=== PATIENT | female | born 1985 | race Two or more races ===

== ENCOUNTER 2024-12-09 08:45 | Emergency (ER) | payer MEDICAID, SELFPAY ==
[2024-12-09 08:59] VITALS: BP 176/115; BP 187/113; PULSE 88; RESP 19; O2SAT 96; BMI 40.6
--- NOTE | 2024-12-09 09:05 | XR_ITS ---
Examination: Wrist, right 3 views Technique: Wrist AP, oblique, lateral 3 views Date and time of exam: December 09, 2024 0916 hours INDICATIONS: Severe wrist pain today FINDINGS: No fracture or dislocation No foreign body No cortical bone destruction IMPRESSION: No fracture or dislocation
--- NOTE | 2024-12-09 09:06 | PD.EDHAND ---
Upper Extremity Injury RME/HPI General Chief Complaint: Hand/Wrist Problems Stated Complaint: SHARP RIGHT HAND PAIN X 2 DAYS Time Seen by Provider: 12/09/24 09:05 Source: patient Arrival date/time: 12/09/24 08:45 39-year-old female with no known medical history presents to the emergency room with a chief complaint of tenderness and pain to the right wrist x 2 days Mode of arrival: ambulatory Limitations: no limitations Related Data Previous Rx's ?Medication ?Instructions ?Recorded benzonatate 100 mg capsule 100 mg PO TID PRN cough #30 caps 07/26/18 (Tessalon Perles) codeine 10 mg-guaifenesin 100 mg/5 5 ml PO QHSPRN PRN cough #118 mL 07/26/18 mL oral liquid (Guaifenesin AC) ibuprofen 800 mg tablet 800 mg PO TID PRN pain #30 tabs 07/26/18 ciprofloxacin HCl 500 mg tablet 500 mg PO BID #14 tabs 04/13/20 lisinopril 5 mg tablet 5 mg PO QDAY #30 tabs 05/02/23 dextromethorphan-guaifenesin 10 10 ml PO Q8H PRN cough #500 mL 07/07/23 mg-100 mg/5 mL oral liquid ibuprofen 600 mg tablet 600 mg PO TID PRN pain #30 tabs 07/07/23 promethazine-DM 6.25 mg-15 mg/5 mL 5 ml PO Q6H #118 mL 10/31/23 oral syrup acetaminophen 500 mg capsule 1,000 mg (2 x 500 mg) PO Q6H PRN 02/18/24 fever or pain #60 caps amlodipine 5 mg tablet 5 mg PO QDAY #30 tabs 02/18/24 ibuprofen 800 mg tablet 800 mg PO TID PRN pain #60 tabs 02/18/24 ibuprofen 800 mg tablet 800 mg PO Q6H PRN pain #10 tabs 03/30/24 promethazine-DM 6.25 mg-15 mg/5 mL 5 ml PO Q6H PRN cough #118 mL 03/30/24 oral syrup Allergies Allergy/AdvReac Type Severity Reaction Status Date / Time No Known Allergies Allergy Verified 12/09/24 08:49 Review of Systems Review of Systems Systems Reviewed: All systems reviewed, normal except as documented Constitutional Constitutional: Reports system reviewed and no additional complaints, except as documented, Denies fatigue, Denies fever(s), Denies headache(s) and Denies weakness Eyes Eyes: Reports system reviewed and no additional complaints, except as documented, Denies blurry vision and Denies change in vision ENT Ears, Nose, Mouth, and Throat: Reports system reviewed and no additional complaints, except as documented, Denies otalgia, Denies headache(s), Denies nasal congestion, Denies throat swelling and Denies vertigo Cardiovascular Cardiovascular: Reports system reviewed and no additional complaints, except as documented, Denies chest pain, Denies dyspnea and Denies dyspnea on exertion Respiratory Respiratory: Reports system reviewed and no additional complaints, except as documented, Denies chest congestion, Denies cough, Denies dyspnea, Denies dyspnea on exertion and Denies wheezing Gastrointestinal Gastrointestinal: Reports system reviewed and no additional complaints, except as documented, Denies abdominal pain, Denies cramping, Denies nausea and Denies vomiting Genitourinary Genitourinary: Reports system reviewed and no additional complaints, except as documented Musculoskeletal Musculoskeletal: Reports system reviewed and no additional complaints, except as documented, Reports arthralgias, Denies back pain, Reports joint swelling, Reports muscle weakness and Denies numbness Integumentary/Breasts Skin/Breast: Reports system reviewed and no additional complaints, except as documented and Denies wounds Neurologic Neurologic: Reports system reviewed and no additional complaints, except as documented, Denies confusion, Denies headache(s), Denies lack of coordination, Denies numbness, Denies vertigo and Denies weakness Psychiatric Psychiatric: Reports system reviewed and no additional complaints, except as documented, Denies anxiety, Denies confusion, Denies depression, Denies paranoia, Denies suicidal ideation and Denies tactile hallucinations Endocrine Endocrine: Reports system reviewed and no additional complaints, except as documented and Denies fatigue Hematologic/Lymphatic Hematologic/Lymphatic: Reports system reviewed and no additional complaints, except as documented and Denies lymphadenopathy Allergic/Immunologic Allergic/Immunologic: Reports system reviewed and no additional complaints, except as documented, Denies throat swelling, Denies urticaria and Denies wheezing Past Medical History Past Medical History CARDIAC: Negative Congestive Heart Failure RESPIRATORY: Negative Chronic Obstructive Pulmonary Disease (COPD) GENITOURINARY: Negative Renal Disease ENDOCRINE: Negative Diabetes Mellitus Type 1 or Diabetes Mellitus Type 2 Social History SMOKING STATUS: Never smoker ED Exam General Limitations: Present no limitations General appearance: Present alert and in no apparent distress Head Head exam: Present atraumatic Eye Eye exam: Present normal appearance, PERRL and EOMI ENT ENT exam: Present normal exam, normal oropharynx and mucous membranes moist Neck Neck exam: Present normal inspection, full ROM and trachea midline Chest Chest inspection: Present normal inspection and symmetric chest wall rise Respiratory Respiratory exam: Present normal lung sounds bilaterally Cardiovascular Cardiovascular exam: Present regular rate, normal rhythm and normal heart sounds Abdominal Exam Abdominal exam: Present soft and normal bowel sounds Extremities Exam Extremities exam: Present normal inspection and full ROM Expanded Upper Extremity Exam Shoulder exam: Present normal inspection Arm exam: Present normal inspection Elbow exam: Present normal inspection Forearm/Wrist exam: Present normal inspection, tenderness and swelling; Absent tenderness over anatomical snuff box Back Exam Back exam: Present normal inspection and full ROM Neurological Exam Neurological exam: Present alert, oriented X3 and CN II-XII intact Psychiatric Psychiatric exam: Present normal affect and normal mood Skin Skin exam: Present warm, dry, intact and normal color Course Quality Measures none Orders Category Date Time Status mia wrap [Splint / Immobilizer] STAT Care 12/09/24 09:06 Active XR wrist comp RT min 3V Stat Exams 12/09/24 09:05 Completed Ketorolac Inj [Toradol Inj] Med 12/09/24 09:06 Discontinued 30 mg IM X1 ONE cloNIDine HCL [Catapres] Med 12/09/24 09:05 Discontinued 0.1 mg PO X1 ONE Vital Signs Vital signs: Vital Signs Pulse Rate 88 12/09/24 08:59 Respiratory Rate 19 12/09/24 08:59 Blood Pressure 176/115 H 12/09/24 08:59 Pulse Oximetry (%) 96 12/09/24 08:59 Oxygen Delivery Method Room Air 12/09/24 08:59 O2 saturation 96% within normal limits Extremity Injury MDM Narrative MDM Narrative:: 39-year-old female with no known medical history presents to the emergency room with a chief complaint of tenderness and pain to the right wrist x 2 days Patient is hemodynamically stable and in no apparent distress. Physical examination shows tenderness and pain to the patient's right wrist. Patient states she works in the [employer] and has a lot of repetitive movement. Patient denies any trauma or injury to the area. An x-ray of the wrist was completed and was negative for any acute fracture. Patient had relief with the Toradol injection Patient was discharged and educated to follow-up with primary care provider in the next 24 to 48 hours and return to the emergency room for any evidence of worsening signs or symptoms Patient data External records reviewed:: [facility] previous records Clinical information provided by:: patient Social determinants that could affect healthcare access:: none Patient has the following chronic illnesses:: Hypertension s How is presenting disease/condition affected by chronic disease/condition?: uneffected by Evaluation data The following diagnostics were reviewed and interpreted by me:: lab results and radiology exam(s) Lab and/or radiology exams considered but not ordered:: Labs and radiology's considered and ordered Interpretation Summary: X-ray wrist-FINDINGS: No fracture or dislocation No foreign body No cortical bone destruction IMPRESSION: No fracture or dislocation Medications / Prescriptions Medications or Prescriptions considered but not ordered:: Medication given Medication administrations:: Medication Administration History Discontinued Medications Clonidine (Clonidine Hcl 0.1 Mg Tablet) 0.1 mg PO X1 ONE Stop: 12/09/24 09:06 Last Admin: 12/09/24 09:27 Dose: 0.1 mg Documented By: SESAR Ketorolac Tromethamine (Ketorolac Inj 60 Mg/2 Ml Vial) 30 mg IM X1 ONE Stop: 12/09/24 09:07 Last Admin: 12/09/24 09:27 Dose: 30 mg Documented By: SESAR Medication given Consultations Consultation(s) initiated? (list below): No Diagnosis Upper Extremity Injury Differential Diagnosis: sprain and strain of wrist, fracture of wrist and other (Tendinitis) Most likely diagnosis given after review of the tests above:: Tendinitis Admission Indicated Admission indicated?: not indicated Admission Request Was there a request for admission?: No Disposition Plan Disposition Plan: Discharge Discharge Attestation Discharge Attestation: The patient and all family members were given an opportunity to ask questions and understood the discharge instructions. Discharge instructions specifically effects, indications for sooner follow up or return to the emergency department, and the expected course of current diagnosis. Patient condition: Stable Discharge Plan Plan Patient Disposition: HOME (Self Care) Discharge Disposition comment: Stable Prescriptions/Referrals Prescriptions/Med Rec: No Action ibuprofen 800 mg tablet 800 mg PO TID PRN (Reason: pain) Qty: 30 0RF benzonatate [Tessalon Perles] 100 mg capsule 100 mg PO TID PRN (Reason: cough) Qty: 30 0RF codeine-guaifenesin [Guaifenesin AC] 10-100 mg/5 mL liquid 5 ml PO QHSPRN PRN (Reason: cough) Qty: 118 0RF Rx Instructions: Do not take at the same time as you take your lorazepam if you are still taking ciprofloxacin HCl 500 mg tablet 500 mg PO BID Qty: 14 0RF lisinopril 5 mg tablet 5 mg PO QDAY Qty: 30 0RF dextromethorphan-guaifenesin 10-100 mg/5 mL liquid 10 ml PO Q8H PRN (Reason: cough) Qty: 500 0RF ibuprofen 600 mg tablet 600 mg PO TID PRN (Reason: pain) Qty: 30 0RF promethazine-DM 6.25-15 mg/5 mL syrup 5 ml PO Q6H Qty: 118 0RF ibuprofen 800 mg tablet 800 mg PO TID PRN (Reason: pain) Qty: 60 0RF acetaminophen 500 mg capsule 1,000 mg PO Q6H PRN (Reason: fever or pain) Qty: 60 0RF amlodipine 5 mg tablet 5 mg PO QDAY Qty: 30 0RF promethazine-DM 6.25-15 mg/5 mL syrup 5 ml PO Q6H PRN (Reason: cough) Qty: 118 0RF ibuprofen 800 mg tablet 800 mg PO Q6H PRN (Reason: pain) Qty: 10 0RF Referrals: No Primary/Family,Physician [Primary Care Provider] - In 1 week Problem List Clinical Impression: Tendinitis Patient/Caregiver Discharge Instructions Additional Instructions: Por favor, consulte con guzman m?dico de cabecera en las pr?ximas 24 a 48 horas. Se realizaron radiograf?as y resultaron negativas para cualquier fractura o luxaci?n aguda. Si observa cualquier signo de empeoramiento de los signos o s?ntomas, acuda a urgencias de inmediato. Print Language: Citizen Of [place] Stand Alone Forms: Cari Award Info., Work/School Release, Patient Portal Info Letter PA/COLLECTOR Supervising Physician PA/COLLECTOR Supervising Physician: Dr. France
[2024-12-09 09:27] VITALS: BP 176/115; PULSE 88
[2024-12-09] MEDS: KETOROLAC INJ 60 MG/2 ML VIAL 30 MG IM (09:27)
[2024-12-09] MEDS: cloNIDine HCL 0.1 MG TABLET PO (09:27)
[2024-12-09 11:05] VITALS: BP 160/80; PULSE 69; RESP 17; TEMP 36.7; O2SAT 99
== END 2024-12-09 11:34 | disposition home or self-care (01) ==
PROVIDERS: Emergency Provider Emergency Medicine
DX: M77.8 Other enthesopathies, not elsewhere classified (principal)
CPT/HCPCS: 73110; 96372; 99283; J1885; A9270

== ENCOUNTER 2025-04-20 10:37 | Emergency (ER) | payer MEDICAID, SELFPAY ==
[2025-04-20 10:38] VITALS: BMI 30.5
[2025-04-20 10:55] VITALS: BP 169/107; PULSE 73; RESP 18; TEMP 37.5; O2SAT 99
--- NOTE | 2025-04-20 10:57 | XR_ITS ---
Examination: PA lateral chest 2 views TECHNIQUE: Upright PA lateral chest 2 views Date and time: April 20, 2025 1117 hours, comparison March 30, 2024 INDICATIONS: Coughing chest pain beginning 2 days ago. FINDINGS: Normal heart size. No interval pneumonia or pulmonary edema. Prominent thoracolumbar levoscoliosis again noted IMPRESSION: No interval pneumonia or pulmonary edema
[2025-04-20] MEDS: DEXAMETHASONE SOD PHOS INJ 10 MG/ML VIAL PO (11:01)
--- NOTE | 2025-04-20 11:03 | PC.NURSE ---
RT CALLED AT THIS TIME AND MADE AWARE PT HAS BREATHING TREATMENT ORDERED BY PROVIDER.
[2025-04-20] MEDS: ALBUTEROL/IPRATROPIUM (Duoneb) RT SOL 3 ML NEBU INH (11:25)
[2025-04-20 11:27] VITALS: PULSE 82; RESP 19; O2SAT 99
[2025-04-20] MEDS: PROMETHAZINE/DM SYRUP 5 ML DOSE PO (11:41)
--- NOTE | 2025-04-20 11:43 | PD.EDURI ---
Upper Respiratory Inf. RME/HPI General Chief Complaint: Flu Like Symptoms Stated Complaint: COUGHX1 WEEK, SOB, CHEST PAIN, & BACK PAIN Time Seen by Provider: 04/20/25 10:41 Arrival date/time: 04/20/25 10:37 39-year-old female with medical history significant for asthma presents with complaints of cough x 1 week patient reports back pain runny nose clinical, congestion, wheezing Limitations: no limitations Related Data Previous Rx's ?Medication ?Instructions ?Recorded benzonatate 100 mg capsule 100 mg PO TID PRN cough #30 caps 07/26/18 (Olivia Gilliam) codeine 10 mg-guaifenesin 100 mg/5 5 ml PO QHSPRN PRN cough #118 mL 07/26/18 mL oral liquid (Guaifenesin AC) ibuprofen 800 mg tablet 800 mg PO TID PRN pain #30 tabs 07/26/18 ciprofloxacin HCl 500 mg tablet 500 mg PO BID #14 tabs 04/13/20 lisinopril 5 mg tablet 5 mg PO QDAY #30 tabs 05/02/23 dextromethorphan-guaifenesin 10 10 ml PO Q8H PRN cough #500 mL 07/07/23 mg-100 mg/5 mL oral liquid ibuprofen 600 mg tablet 600 mg PO TID PRN pain #30 tabs 07/07/23 promethazine-DM 6.25 mg-15 mg/5 mL 5 ml PO Q6H #118 mL 10/31/23 oral syrup acetaminophen 500 mg capsule 1,000 mg (2 x 500 mg) PO Q6H PRN 02/18/24 fever or pain #60 caps amlodipine 5 mg tablet 5 mg PO QDAY #30 tabs 02/18/24 ibuprofen 800 mg tablet 800 mg PO TID PRN pain #60 tabs 02/18/24 ibuprofen 800 mg tablet 800 mg PO Q6H PRN pain #10 tabs 03/30/24 promethazine-DM 6.25 mg-15 mg/5 mL 5 ml PO Q6H PRN cough #118 mL 03/30/24 oral syrup Ventolin HFA 90 mcg/actuation 2 puff inhalation Q6H PRN 04/20/25 aerosol inhaler (albuterol sulfate) shortness of breath or wheezing #18 grams benzonatate 100 mg capsule 100 mg PO TID #14 caps 04/20/25 ibuprofen 600 mg tablet 600 mg PO Q6H #30 tabs 04/20/25 prednisone 10 mg tablet 30 mg (3 x 10 mg) PO BID 3 days 04/20/25 #18 tabs Allergies Allergy/AdvReac Type Severity Reaction Status Date / Time No Known Allergies Allergy Verified 04/20/25 10:44 Review of Systems Review of Systems Systems Reviewed: All systems reviewed, normal except as documented Constitutional Constitutional: Reports system reviewed and no additional complaints, except as documented, Denies fever(s) and Denies headache(s) Eyes Eyes: Reports system reviewed and no additional complaints, except as documented and Denies blurry vision ENT Ears, Nose, Mouth, and Throat: Reports system reviewed and no additional complaints, except as documented, Denies headache(s), Reports nasal congestion and Reports nasal discharge Cardiovascular Cardiovascular: Reports system reviewed and no additional complaints, except as documented, Denies chest pain and Denies dyspnea Respiratory Respiratory: Reports system reviewed and no additional complaints, except as documented, Reports chest congestion, Reports cough and Denies dyspnea Gastrointestinal Gastrointestinal: Reports system reviewed and no additional complaints, except as documented and Denies abdominal pain Integumentary/Breasts Skin/Breast: Reports system reviewed and no additional complaints, except as documented and Denies rash Neurologic Neurologic: Reports system reviewed and no additional complaints, except as documented, Reports as per HPI and Denies headache(s) Past Medical History Past Medical History CARDIAC: Negative Congestive Heart Failure RESPIRATORY: Negative Chronic Obstructive Pulmonary Disease (COPD) GENITOURINARY: Negative Renal Disease ENDOCRINE: Negative Diabetes Mellitus Type 1 or Diabetes Mellitus Type 2 Social History SMOKING STATUS: Never smoker ED Exam General Limitations: Present no limitations General appearance: Present alert and in no apparent distress Head Head exam: Present atraumatic, normocephalic and normal inspection Eye Eye exam: Present normal appearance, PERRL and EOMI; Absent conjunctival injection ENT ENT exam: Present normal exam, normal oropharynx and mucous membranes moist Neck Neck exam: Present normal inspection, full ROM and trachea midline Chest Chest inspection: Present normal inspection and symmetric chest wall rise Respiratory Respiratory exam: Present wheezes (Mild expiratory wheeze); Absent respiratory distress, stridor, accessory muscle use or prolonged expiratory phase Cardiovascular Cardiovascular exam: Present regular rate, normal rhythm and normal heart sounds Abdominal Exam Abdominal exam: Present soft and normal bowel sounds Extremities Exam Extremities exam: Present normal inspection and full ROM Back Exam Back exam: Present normal inspection and full ROM Neurological Exam Neurological exam: Present alert, oriented X3 and CN II-XII intact Psychiatric Psychiatric exam: Present normal affect and normal mood Skin Skin exam: Present warm, dry, intact and normal color Course Quality Measures none Orders Category Date Time Status Bedside COVID-19 Antigen Test NOW Care 04/20/25 10:57 Completed Bedside Influenza A&B Antigen Test NOW Care 04/20/25 10:57 Completed XR chest 2V Stat Exams 04/20/25 10:57 Completed Albuterol/Ipratr Rt Luz [Duoneb Rt Luz] Med 04/20/25 10:58 Discontinued 3 ml INH X1 ONE Dexamethasone Inj [Decadron Inj] Med 04/20/25 10:58 Discontinued 10 mg PO X1 ONE Promethazine/Dextromethorph [Phenergan Dm Syrup] Med 04/20/25 11:30 Discontinued 5 ml PO X1 ONE Vital Signs Vital signs: Vital Signs Temperature 99.5 F 04/20/25 10:55 Pulse Rate 73 04/20/25 10:55 Respiratory Rate 18 04/20/25 10:55 Blood Pressure 169/107 H 04/20/25 10:55 Pulse Oximetry (%) 99 04/20/25 10:55 Oxygen Delivery Method Room Air 04/20/25 10:55 O2 saturation 98% room air within limits Upper Respiratory Infection MDM Narrative MDM Narrative:: 39-year-old female with medical history significant for asthma presents with complaints of cough x 1 week patient reports back pain runny nose clinical, congestion, wheezing On exam patient well-appearing patient does not appear ill or toxic no acute distress Patient checked for flu and COVID both which are negative Chest x-ray obtained no acute pneumonic infiltrates noted Patient does have a cough patient was given a breathing treatment Time reevaluation lungs are clear to auscultation no difficulty breathing no retractions Patient discharged home in no distress to follow-up with primary care doctor in the next 24 to 48 hours and for any worsening symptoms to return to the ER immediately Patient data External records reviewed:: [facility] previous records Clinical information provided by:: patient Social determinants that could affect healthcare access:: none Patient has the following chronic illnesses:: None How is presenting disease/condition affected by chronic disease/condition?: no chronic disease Evaluation data The following diagnostics were reviewed and interpreted by me:: lab results and radiology exam(s) Lab and/or radiology exams considered but not ordered:: Labs radiology obtained Interpretation Summary: Reviewed by me Medications / Prescriptions Medications or Prescriptions considered but not ordered:: Given Medication administrations:: Medication Administration History Discontinued Medications Albuterol/Ipratropium (Albuterol/Ipratropium (Duoneb) Rt Luz 3 Ml Nebu) 3 ml INH X1 ONE Stop: 04/20/25 10:59 Last Admin: 04/20/25 11:25 Dose: 3 ml Documented By: JAMES Dexamethasone Sodium Phosphate (Dexamethasone Sod Phos Inj 10 Mg/Ml Vial) 10 mg PO X1 ONE Stop: 04/20/25 10:59 Last Admin: 04/20/25 11:01 Dose: 10 mg Documented By: Comments: per provider, ok to give PO Promethazine HCl/Dextromethorphan (Promethazine/Dm Syrup 5 Ml Dose) 5 ml PO X1 ONE; Protocol Stop: 04/20/25 11:31 Last Admin: 04/20/25 11:41 Dose: 5 ml Documented By: Given Consultations Consultation(s) initiated? (list below): No Diagnosis Upper Respiratory Differential Diagnosis: upper respiratory infection, viral infection, bronchitis and influenza Most likely diagnosis given after review of the tests above:: URI Admission Indicated Admission indicated?: not indicated Admission Request Was there a request for admission?: No Disposition Plan Disposition Plan: Discharge Discharge Attestation Discharge Attestation: The patient and all family members were given an opportunity to ask questions and understood the discharge instructions. Discharge instructions specifically effects, indications for sooner follow up or return to the emergency department, and the expected course of current diagnosis. Patient condition: Stable Discharge Plan Plan Patient Disposition: HOME (Self Care) Discharge Disposition comment: Stable Prescriptions/Referrals Prescriptions/Med Rec: New prednisone 10 mg tablet 30 mg PO BID 3 Days Qty: 18 0RF benzonatate 100 mg capsule 100 mg PO TID Qty: 14 0RF ibuprofen 600 mg tablet 600 mg PO Q6H Qty: 30 0RF albuterol sulfate [Ventolin HFA] 90 mcg/actuation HFA aerosol inhaler 2 puff inhalation Q6H PRN (Reason: shortness of breath or wheezing) Qty: 18 0RF No Action ibuprofen 800 mg tablet 800 mg PO TID PRN (Reason: pain) Qty: 30 0RF benzonatate [Tessalon Perles] 100 mg capsule 100 mg PO TID PRN (Reason: cough) Qty: 30 0RF codeine-guaifenesin [Guaifenesin AC] 10-100 mg/5 mL liquid 5 ml PO QHSPRN PRN (Reason: cough) Qty: 118 0RF Rx Instructions: Do not take at the same time as you take your lorazepam if you are still taking ciprofloxacin HCl 500 mg tablet 500 mg PO BID Qty: 14 0RF lisinopril 5 mg tablet 5 mg PO QDAY Qty: 30 0RF dextromethorphan-guaifenesin 10-100 mg/5 mL liquid 10 ml PO Q8H PRN (Reason: cough) Qty: 500 0RF ibuprofen 600 mg tablet 600 mg PO TID PRN (Reason: pain) Qty: 30 0RF promethazine-DM 6.25-15 mg/5 mL syrup 5 ml PO Q6H Qty: 118 0RF ibuprofen 800 mg tablet 800 mg PO TID PRN (Reason: pain) Qty: 60 0RF acetaminophen 500 mg capsule 1,000 mg PO Q6H PRN (Reason: fever or pain) Qty: 60 0RF amlodipine 5 mg tablet 5 mg PO QDAY Qty: 30 0RF promethazine-DM 6.25-15 mg/5 mL syrup 5 ml PO Q6H PRN (Reason: cough) Qty: 118 0RF ibuprofen 800 mg tablet 800 mg PO Q6H PRN (Reason: pain) Qty: 10 0RF Referrals: Oliver Palomino PA-C [Primary Care Provider] - In 1 week Problem List Clinical Impression: Upper respiratory infection Patient/Caregiver Discharge Instructions Education Materials: ED URI, Viral, No Abx (Adult) Additional Instructions: Please follow up with your primary care doctor in the next 24-48hrs for any worsening symptoms return here immediately Print Language: [place] Stand Alone Forms: Cari Award Info., Work/School Release, Patient Portal Info Letter PA/MALU Supervising Physician PA/MALU Supervising Physician: Dr. Ocasio
== END 2025-04-20 11:57 | disposition home or self-care (01) ==
PROVIDERS: Emergency Provider Family Medicine; PCP Physician Assistant Medical
DX: J06.9 Acute upper respiratory infection, unspecified (principal); J45.909 Unspecified asthma, uncomplicated
CPT/HCPCS: 71046; 87400; 87811; 94640; 99283; A9270; J1100